=== PATIENT | female | born 1960 | race Hispanic/Latino ===

== ENCOUNTER 2019-12-14 13:15 | Outpatient (CLI) | payer OTHER | END 2019-12-14 13:16 | disposition home or self-care (01) | LOC: SPVWC 13:15 | PROVIDERS: ATTEND Internal Medicine Hematology & Oncology | DX: Z12.31 Encounter for screening mammogram for malignant neoplasm of breast (principal) | CPT/HCPCS: 77067 ==

== ENCOUNTER 2020-04-20 12:09 | Emergency (ER) | payer OTHER ==
--- NOTE | 2020-04-20 12:36 | Event Note ---
ED Screening Note ED Screening Note: left shoulder, left chest, left neck, left shoulder blade states it is constant states occasionally she has stabbing pains feels like "lightening" Dr. Neely, her PCP advised to be seen in the ED no SOB no n/v/d PMHx triple negative breast CA in remission, underwent chemo/XRT PMHx DDD This initial assessment/diagnostic orders/clinical plan/treatment(s) is/are subject to change based on patients health status, clinical progression and re- assessment by fellow clinical providers in the ED. Further treatment and workup at subsequent clinical providers discretion. Patient/guardian urged not to elope from the ED as their condition may be serious if not clinically assessed and managed. Initial orders include: CP protocol
[2020-04-20 13:56] LABS: INR 0.95 (0.87-1.13)
[2020-04-20 13:57] LABS: Partial Thromboplastin Time 21.1 Sec. (24.2-36.6)
[2020-04-20 13:58] LABS: Alanine Aminotransferase 21 units/L (7-56); Albumin 4.5 g/dL (3.9-5); Blood Urea Nitrogen 11 mg/dL (7-17); Calcium 9.1 mg/dL (8.4-10.2); Hematocrit TNR % (30.3-42.9); Hemoglobin TNR gm/dl (10.1-14.3); Hemolysis Index 109; Red Blood Count TNR M/mm3 (3.65-5.03)
[2020-04-20 13:59] LABS: Basophils % (Auto) TNR % (0.0-1.8); Eosinophils % (Auto) TNR % (0.0-4.3); Lymphocytes % (Auto) TNR % (13.4-35.0); Mean Corpuscular HGB Conc TNR % (30-34); Mean Corpuscular Volume TNR fl (79-97); Mean Platelet Volume TNR fl (6-12); Monocytes % (Auto) TNR % (0.0-7.3); Platelet Count TNR K/mm3 (140-440); Red Cell Distribution Width TNR % (13.2-15.2)
[2020-04-20 14:00] LABS: BUN/Creatinine Ratio 22; Basophils # (Auto) TNR K/mm3 (0.0-0.1); Eosinophils # (Auto) TNR K/mm3 (0.0-0.4); Lymphocytes # (Auto) TNR K/mm3 (1.2-5.4); Monocytes # (Auto) TNR K/mm3 (0.0-0.8)
--- NOTE | 2020-04-20 14:00 | XRay Report ---
CHEST 2 VIEWS INDICATION: Chest Pain. COMPARISON: None. FINDINGS: Support devices: None. Heart: Within normal limits. Lungs/Pleura: No acute air space or interstitial disease. No significant pleural effusion. IMPRESSION: No acute findings. Signer Name: Yusuf Vital MD Signed: 04/20/2020 1:55 PM Workstation Name: [id number]
[2020-04-20 14:24] LABS: Basophils % (Auto) 0.4 % (0.0-1.8); Eosinophils # (Auto) 0.1 K/mm3 (0.0-0.4); Eosinophils % (Auto) 1.4 % (0.0-4.3); Hematocrit 40.8 % (30.3-42.9); Hemoglobin 13.7 gm/dl (10.1-14.3); Lymphocytes # (Auto) 1.9 K/mm3 (1.2-5.4); Lymphocytes % (Auto) 29.2 % (13.4-35.0); Mean Corpuscular HGB Conc 34 % (30-34); Mean Corpuscular Volume 87 fl (79-97); Monocytes # (Auto) 0.4 K/mm3 (0.0-0.8); Monocytes % (Auto) 6.8 % (0.0-7.3); Platelet Count 249 K/mm3 (140-440); Red Blood Count 4.69 M/mm3 (3.65-5.03); Red Cell Distribution Width 14.4 % (13.2-15.2)
[2020-04-20] MEDS ORDERED: KETOROLAC 30 MG/1 ML INJ IV ONE (15:23)
[2020-04-20] MEDS ORDERED: SODIUM CHLORIDE 0.9% 1000 ML 1,000 ML IV ONE (15:25)
--- NOTE | 2020-04-20 15:25 | Emergency Department Report ---
ED General Adult HPI - General Chief complaint: Chest Pain Stated complaint: NECK/LT SHOULDER PAIN HEART PAIN Time Seen by Provider: 04/20/20 12:32 Source: patient Mode of arrival: Ambulatory Limitations: No Limitations - History of Present Illness Initial comments: Patient is a 59-year-old female with history of cervical discectomy who presents emergency department for evaluation of several weeks of dull constant left sided neck and shoulder pain which is worse with movement of her left shoulder or neck. Patient states several days ago she had 2 brief episodes of chest tightness which she believed to be gas, however, when calling her primary care physician they suggested she present for evaluation for cardiac disease. Patient denies ongoing chest pain, denies recurrence of chest pain, denies shortness of breath at any point, denies calf pain or swelling. (+) HTN, (+) maternal CHF, (?) hypercholesterolemia, (-) smoking, (-) DM - Related Data Allergies Allergy/AdvReac Type Severity Reaction Status Date / Time amoxicillin Allergy Hives Verified 04/20/20 12:21 BIOX Allergy Shortness Uncoded 04/20/20 12:21 of Breath IV CONTRAST Allergy Hives Uncoded 04/20/20 16:34 IVP DYE Allergy Hives Uncoded 04/20/20 12:21 ED Review of Systems ROS: Stated complaint: NECK/LT SHOULDER PAIN HEART PAIN Other details as noted in HPI Comment: All other systems reviewed and negative ED Past Medical Hx - Past Medical History Previous Medical History?: Yes Hx Hypertension: Yes Additional medical history: BREAST CANCER - Surgical History Additional Surgical History: BREAST - Social History Smoking Status: Never Smoker Substance Use Type: None ED Physical Exam - General Limitations: No Limitations General appearance: alert, in no apparent distress - Head Head exam: Present: atraumatic, normocephalic - Eye Eye exam: Present: normal appearance - ENT ENT exam: Present: mucous membranes moist - Neck Neck exam: Present: tenderness (Left-sided para cervical spasm and tenderness) - Respiratory Respiratory exam: Present: normal lung sounds bilaterally. Absent: respiratory distress - Cardiovascular Cardiovascular Exam: Present: regular rate, normal rhythm. Absent: systolic murmur, diastolic murmur, rubs, gallop - GI/Abdominal GI/Abdominal exam: Present: soft, normal bowel sounds - Extremities Exam Extremities exam: Present: normal inspection - Back Exam Back exam: Present: normal inspection - Neurological Exam Neurological exam: Present: alert, oriented X3 - Psychiatric Psychiatric exam: Present: normal affect, normal mood - Skin Skin exam: Present: warm, dry, intact, normal color. Absent: rash ED Course Vital Signs 04/20/20 04/20/20 04/20/20 12:20 16:03 16:04 Temperature 99.4 F Pulse Rate 95 H 88 Respiratory 18 16 Rate Blood Pressure 151/88 Blood Pressure 161/71 [Left] O2 Sat by Pulse 96 100 100 Oximetry - Reevaluation(s) Reevaluation #1: 04/20/20 15:37 Patient initially treated with Toradol IV x1 and NaCl 1 L x 1 Reevaluation #2: 04/20/20 18:27 Patient reevaluated in no acute distress. States pain is resolved. ED Medical Decision Making - Lab Data Result diagrams: 04/20/20 14:04 04/20/20 13:12 Labs 04/20/20 04/20/20 04/20/20 13:12 13:12 13:12 WBC TNR RBC TNR Hgb TNR Hct TNR MCV TNR MCH TNR MCHC TNR RDW TNR Plt Count TNR Lymph % (Auto) TNR [place] % (Auto) TNR Eos % (Auto) TNR Baso % (Auto) TNR Lymph # (Auto) TNR [place] # (Auto) TNR Eos # (Auto) TNR Baso # (Auto) TNR Add Manual Diff TNR Seg Neutrophils % TNR Seg Neutrophils # TNR PT 12.5 INR 0.95 APTT 21.1 L D-Dimer Sodium 139 Potassium 4.7 Chloride 104.0 Carbon Dioxide 25 Anion Gap 15 BUN 11 Creatinine 0.5 L Estimated GFR > 60 BUN/Creatinine Ratio 22 Glucose 93 Calcium 9.1 Total Bilirubin 0.40 AST 27 ALT 21 Alkaline Phosphatase 76 Troponin T < 0.010 Total Protein 6.9 Albumin 4.5 Albumin/Globulin Ratio 1.9 04/20/20 04/20/20 04/20/20 13:12 14:04 14:04 WBC 6.3 RBC 4.69 Hgb 13.7 Hct 40.8 MCV 87 MCH 29 MCHC 34 RDW 14.4 Plt Count 249 Lymph % (Auto) 29.2 [place] % (Auto) 6.8 Eos % (Auto) 1.4 Baso % (Auto) 0.4 Lymph # (Auto) 1.9 [place] # (Auto) 0.4 Eos # (Auto) 0.1 Baso # (Auto) 0.0 Add Manual Diff Seg Neutrophils % 62.2 Seg Neutrophils # 3.9 PT INR APTT D-Dimer 399.3 H Sodium Potassium Chloride Carbon Dioxide Anion Gap BUN Creatinine Estimated GFR BUN/Creatinine Ratio Glucose Calcium Total Bilirubin AST ALT Alkaline Phosphatase Troponin T < 0.010 Total Protein Albumin Albumin/Globulin Ratio Vital Signs 04/20/20 04/20/20 04/20/20 12:20 16:03 16:04 Temperature 99.4 F Pulse Rate 95 H 88 Respiratory 18 16 Rate Blood Pressure 151/88 Blood Pressure 161/71 [Left] O2 Sat by Pulse 96 100 100 Oximetry - EKG Data -: EKG Interpreted by Me (Sinus rhythm 89, no ST-T changes, normal QRS) - Radiology Data Radiology results: report reviewed Findings [address] [address] Nuclear Medicine Report Signed Patient: TEA TERRELL MR#: [id number] : 1960 Acct:[id number] Age/Sex: 59 / F ADM Date: 04/20/20 Loc: ED Attending Dr: Ordering Physician: ALIDA LOVELL MD Date of Service: 04/20/20 Procedure(s): NM perfusion only lung scan Accession Number(s): [id number] cc: ALIDA LOVELL MD NUCLEAR MEDICINE PERFUSION LUNG SCAN INDICATION / CLINICAL INFORMATION: chest pain. TECHNIQUE: 4.5 mCi of Tc-99m MAA were given by IV. COMPARISON: Chest radiograph from earlier today, 04/20/2020. FINDINGS: PERFUSION: No significant perfusion defects. ADDITIONAL FINDINGS: None. IMPRESSION: 1. Low probability for pulmonary embolism. Signer Name: Demarcus Virk MD Signed: 04/20/2020 6:20 PM Workstation Name: [id number] Transcribed By: JERI Dictated By: DEMARCUS VIRK MD Electronically Authenticated By: DEMARCUS VIRK MD Signed Date/Time: 04/20/201819 DD/ 18 TD/TT: Findings [address] [address] XRay Report Signed Patient: TEA TERRELL MR#: [id number] : 1960 Acct:[id number] Age/Sex: 59 / F ADM Date: 04/20/20 Loc: ED Attending Dr: Ordering Physician: CARL AREVALO Date of Service: 04/20/20 Procedure(s): XR chest routine 2V Accession Number(s): [id number] cc: CARL AREVALO Fluoro Time In Minutes: CHEST 2 VIEWS INDICATION: Chest Pain. COMPARISON: None. FINDINGS: Support devices: None. Heart: Within normal limits. Lungs/Pleura: No acute air space or interstitial disease. No significant pleural effusion. IMPRESSION: No acute findings. Signer Name: Yusuf Vital MD Signed: 04/20/2020 1:55 PM Workstation Name: [id number] Transcribed By: ES Dictated By: Yusuf Vital MD Electronically Authenticated By: Yusuf Vital MD Signed Date/Time: 04/20/20 135 DD/ 1354 TD/TT: Critical care attestation.: If time is entered above; I have spent that time in minutes in the direct care of this critically ill patient, excluding procedure time. ED Disposition Clinical Impression: Left cervical radiculopathy, Chest pain Disposition: DC- TO HOME OR SELFCARE Is pt being admited?: No Condition: Stable Instructions: Radicular Pain, Nonspecific Chest Pain, Adult, Chest Pain (ED) Referrals: GALI ADAMSON MD [Primary Care Provider] - 3-5 Days Heart Score - HEART Score History: Slightly suspicious EKG: Normal Age: 45-65 Risk factors: > 3 risk factors or hx of atherosclerotic disease Troponin: < normal limit HEART Score: 3
--- NOTE | 2020-04-20 18:24 | Nuclear Medicine Report ---
NUCLEAR MEDICINE PERFUSION LUNG SCAN INDICATION / CLINICAL INFORMATION: chest pain. TECHNIQUE: 4.5 mCi of Tc-99m MAA were given by IV. COMPARISON: Chest radiograph from earlier today, 04/20/2020. FINDINGS: PERFUSION: No significant perfusion defects. ADDITIONAL FINDINGS: None. IMPRESSION: 1. Low probability for pulmonary embolism. Signer Name: Abraham Virk MD Signed: 04/20/2020 6:20 PM Workstation Name: [id number]
[2020-04-20 18:41] VITALS: BP 143/68
== END 2020-04-20 18:41 | disposition home or self-care (01) ==
LOC: ED 12:09
DX: M54.12 Radiculopathy, cervical region (principal); R07.89 Other chest pain; I10 Essential (primary) hypertension; Z98.890 Other specified postprocedural states; Z88.8 Allergy status to other drugs, medicaments and biological substances
CPT/HCPCS: 36415; 71046; 78580; 80053; 84484; 85025; 85379; 85610; 85730; 93005; 96361; 96374; 99284; A9540; J1885; J7030